=== PATIENT | male | born 2000 | race Caucasian/White ===

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

== ENCOUNTER 2018-07-16 14:50 | Emergency (ER) | payer OTHER ==
[2018-07-16 14:58] VITALS: BP 142/65
--- NOTE | 2018-07-16 15:14 | UC ---
General HPI - HPI Summary HPI Summary: Mr. Rutherford presents complaining of feeling flushed and lightheaded. He is more anxious than normal and didn't sleep well last night. His symptoms started yesterday but weren't as bad as they are today. He missed his Zoloft doses on and Monday but has taken them Monday and Monday and today. He felt similar symptoms to this when he first started taking Zoloft and he attributes it to advancing the dose to quickly. He feels safe and does not have any HI or SI. - History of Current Complaint Chief Complaint: UCGeneralIllness Stated Complaint: ANXIETY Time Seen by Provider: 07/16/18 15:02 Hx Obtained From: Patient Onset/Duration: Gradual Onset Onset Severity: Mild Current Severity: None Pain Intensity: 7 Associated Signs & Symptoms: Positive: Dizziness, Diaphoresis - Allergy/Home Medications Allergies/Adverse Reactions: Allergies Allergy/AdvReac Type Severity Reaction Status Date / Time Penicillins Allergy Swelling Verified 07/16/18 14:58 Of Face,Lips,& Throat Home Medications: Home Medications Sertraline* [Zoloft*] 5 mg PO DAILY 07/16/18 [History Confirmed 07/16/18] PMH/Surg Hx/FS Hx/Imm Hx Previously Healthy: Yes - Surgical History Surgical History: None Surgery Procedure, Year, and Place: None - Family History Known Family History: Positive: Cardiac Disease - [place] - both grandfathers - Social History Alcohol Use: Occasionally Substance Use Type: Marijuana Substance Use Comment - Amount & Last Used: Occasional Smoking Status (MU): Never Smoked Tobacco Review of Systems All Other Systems Reviewed And Are Negative: Yes Psychological: Positive: Anxious Physical Exam - Summary Physical Exam Summary: He is nontoxic in appearance with stable vitals. Triage Information Reviewed: Yes Appearance: Well-Appearing Vital Signs: Initial Vital Signs Temp 97 F 07/16/18 14:53 Pulse 65 07/16/18 14:53 Resp 16 07/16/18 14:53 BP 142/65 07/16/18 14:53 Pulse Ox 100 07/16/18 14:53 Vital Signs Reviewed: Yes ENT Exam: Normal Cardiovascular Exam: Normal Abdominal Exam: Normal Musculoskeletal Exam: Normal Neurological Exam: Normal Psychological Exam: Normal Skin Exam: Normal Course/Dx - Course Course Of Treatment: Mr. Rutherford attributes his symptoms to missing a couple doses. He does not feel that he is in any danger and merely wants some medication to get a good night sleep tonight. I will give him some trazodone for tonight and tomorrow night and cautioned him to get follow-up care if he was not getting better quickly. - Diagnoses Provider Diagnosis: Anxiety Discharge - Sign-Out/Discharge Documenting (check all that apply): Patient Departure All imaging exams completed and their final reports reviewed: No Studies - Discharge Plan Condition: Stable Disposition: HOME Patient Education Materials: Anxiety (ED) Referrals: [facility] [Primary Care Provider] - Additional Instructions: I have prescribed some medication to help her get a good night sleep tonight and tomorrow night. If this does not help her symptoms please follow up either at [facility] or return here. - Billing Disposition and Condition Condition: STABLE Disposition: Home
== END 2018-07-16 15:27 | disposition home or self-care (01) ==
LOC: UCEAST 14:50
DX: F41.9 Anxiety disorder, unspecified (principal); R42 Dizziness and giddiness; R61 Generalized hyperhidrosis; Z88.0 Allergy status to penicillin
CPT/HCPCS: 99212; G0463